=== PATIENT | female | born 1955 | race Caucasian/White ===

== ENCOUNTER → 2024-05-25 09:29 | Outpatient (REF) | payer MEDICARE, OTHER, SELFPAY | LOC: RAD 09:29 | DX: M81.0 Age-related osteoporosis without current pathological fracture (principal) | CPT/HCPCS: 77080 ==

== ENCOUNTER → 2025-03-09 14:56 | Outpatient (REF) | payer MEDICARE, OTHER, SELFPAY | LOC: RCS 14:56 | PROVIDERS: ATTENDING PHYSICIAN Internal Medicine Cardiovascular Disease; FAMILY PHYSICIAN Internal Medicine | DX: I35.1 Nonrheumatic aortic (valve) insufficiency (principal) | CPT/HCPCS: 93306 ==